=== PATIENT | male | born 2000 | race Caucasian/White ===

== ENCOUNTER 2020-05-13 10:53 | Emergency (ER) | payer OTHER ==
[~2020-05-13] VITALS: Ht 182.9 cm; Wt 74.8 kg
[2020-05-13 11:01] VITALS: BP 136/75
[2020-05-13] MEDS ORDERED: cefTRIAXone SOD 1,000 MG VL IM ONE (12:15)
[2020-05-13] MEDS ORDERED: TETANUS-DIPTH-ACEL PERTUSSIS 0.5ML SYR Tdap IM ONE (12:15)
== END 2020-05-13 12:32 | disposition home or self-care (01) ==
LOC: ER 10:53
DX: S62.640A Nondisplaced fracture of proximal phalanx of right index finger, initial encounter for closed fracture (principal); S61.210A Laceration without foreign body of right index finger without damage to nail, initial encounter; W22.8XXA Striking against or struck by other objects, initial encounter; Y93.89 Activity, other specified; Y92.89 Other specified places as the place of occurrence of the external cause; Y99.8 Other external cause status
CPT/HCPCS: 12002; 73130; 90471; 90715; 96372; 99284; J0696